=== PATIENT | female | born 1930 | race Caucasian/White ===

== ENCOUNTER 2016-09-26 07:30 | Inpatient (IN) ==
[~2016-09-26 07:30] MED LIST: ACETAMINOPHEN 500 MG TABLET PO ONE; CEFAZOLIN 1 G INJECTION IVP ONE; DEXAMETHASONE 4 MG/ML INJECTION IVP ONE; FAMOTIDINE PB 20 MG/50 ML BAG IV ONE; LIDOCAINE 1% (10mg/ml) 2mL INJ PF SDV ID ONE; MELOXICAM 15 MG TABLET PO ONE; METOCLOPRAMIDE 10mg/2ml INJECTION IVP ONE; NOZIN NASAL SWAB NAS ONE; ONDANSETRON 4 MG/2 ML INJECTION IVP ONE; TRANEXAMIC ACID 1,000 MG in NS 100 ML IV ONE
[2016-09-26] MEDS ORDERED: EPINEPHrine 0.25 MG, BUPIVACAINE 0.25% PF 30 ML, MORPHINE SULFATE 15 MG, KETOROLAC INJ ... OPSITE ONE (08:00)
[2016-09-26 08:23] VITALS: BMI 21.9
[2016-09-26] MEDS: LR 1,000 ML IV SCH ×2 (08:45→12:50)
[2016-09-26] MEDS ORDERED: VANCOMYCIN 1,000 MG INJECTION ONE (10:31)
--- NOTE | 2016-09-26 10:54 | Anesthesia Preoperative Report ---
Anesthesia Preoperative Record - Date and Time Date: 09/26/16 Preoperative Diagnosis: Rt TKA M17.11 Proposed Procedure: Right total knee arthroplasty NPO Since Date: 09/26/16 NPO Since Time: 10:52 Allergies/Adverse Reactions: Allergies Allergy/AdvReac Type Severity Reaction Status Date / Time erythromycin base Allergy Intermediate TRENCH Verified 09/26/16 09:07 MOUTH - Vital Signs Vital Signs: Temperature 98.3 F 09/26/16 08:20 Pulse Rate 62 09/26/16 08:46 Respiratory Rate 20 09/26/16 08:20 Blood Pressure 153/69 H 09/26/16 08:20 Pulse Oximetry 100 09/26/16 08:20 Oxygen Delivery Method Room Air Height and Weight: Height 4 ft 11 in Weight 49.3 kg Body Mass Index 21.9 - Medications Inpatient Medications: Current Medications Lactated Ringer's (Lactated Ringers) 1,000 mls @ 50 mls/hr IV .Q20H ANGEL LUIS Last Admin: 09/26/16 08:45 Dose: 50 mls/hr Sodium Chloride (Iv Flush) 10 - 80 ml IVF PRN PRN PRN Reason: [place] Home Medications: Home Medications Medication Instructions Recorded Confirmed Type Amlodipine Besylate 5 mg PO HS #0 02/08/11 09/26/16 History Aspirin [Aspir 81] 81 mg PO DAILY #0 02/08/11 09/26/16 History Thyroid,Pork [[place] Thyroid] 60 mg PO DAILY #0 02/08/11 09/26/16 History Calcium Citrate/Vitamin D3 1 cap PO BID #0 08/19/14 09/26/16 History [Citracal + D Maximum Caplet] Omeprazole 40 mg PO DAILY #0 08/19/14 09/26/16 History Pravastatin Sodium 20 mg PO HS #0 08/19/14 09/26/16 History Is Patient on Beta Oswald?: Yes - Medical History Respiratory: DENIES: Asthma, Bronchitis, Chronic Obstructive Pulmonary Disease (COPD), Dyspnea, Orthopnea, Pulmonary Embolism, Pneumonia, Upper Respiratory Infection, Pulmonary Edema, Sleep Apnea, Tuberculosis, Other Cardiovascular: Reports: Hypertension, High Cholesterol, Other (Carotid stenosis -> Bilat endarterectomies) Gastrointestional: Reports: Gastroesophageal Reflux Disease (well controlled with meds) Neuro/Musculoskeletal: Denies: HX.MS.OSAR, Back Problems, Cerebrovascular Accident, Depression, Headaches, Loss of Consciousness, Muscle Weakness, Neuromuscular Disorder, Paralysis, Paresthesia, Syncope, Seizures, Other Renal/Endocrine: Reports: Thyroid Disease (controlled with emds) Other History: DENIES: Anesthesia Reactions, Now, Blood Transfusions, Chemotherapy , Cancer, Hemophilia, Malignant Hyperthermia, Sickle Cell Disease, Other - Surgical History HEENT Surgeries: Reports: Eye Surgery (cataract with IOL x2; repair retinal hole ) Cardiac Surgeries/Treatments: Reports: Cardiac Catheterization GI Surgery/Treatments: Reports: Colonoscopy Surgery/Treatment: REPORT: Other (MMK) Musculoskeletal Surgery/Tx: Reports: Carpal Tunnel Release (BIALTERAL CARPAL TUNNEL RELEASE; RIGHT GANGLION CYST), Knee Arthroscopy (LEFT KNEE) Reproductive Surgery/Treatment: Reports: Other (breast biopsy x2 ON RIGHT) Anesthesia Reactions: None Hx Family Anesthesia Reaction: No History of Motion Sickness: No - Social History Smoking Status: Never smoker Substance Use Type: does not use - Pertinent Findings EKG Rhythm: Normal Sinus Rhythm - Physical Exam Respiratory Exam: Present: lungs clear, bilateral breath sounds equal Cardiovascular Exam: Present: regular rate and rhythm, no murmur - Airway Assessment Mallampati Score: II TMD: 3 Fingerbreadths Neck Extension: good Teeth: chipped teeth/crowns (left top front) Overall Assessment: no airway concerns - ASA ASA Score: 2 - Plan Anesthesia: General TIVA, Neuroaxial (SAB) Regional/Trunk Block: Spinal Peripheral Nerve Block: Saphenous-Right (Post op) - Discussion Discussion: Discussed risks/options/alternatives of anesthesia and questions answered. Patient consents. Nursing pain assessment noted. Present for Discussion: other (none) Attestation Statement: Prior to the delivery of any anesthetic medication, I examined the patient, developed the plan, obtained the patient's consent and discussed the risk and benefits of the procedure with the patient/guardian. - Additional Information Seen by Anesthesia: Yes
[2016-09-26] MEDS ORDERED: SALINE FLUSH 10ml SYRINGE IVF PRN (11:12)
[2016-09-26] MEDS ORDERED: VANCOMYCIN 1,000 MG INJECTION IAR ONE (13:00)
[2016-09-26] MEDS ORDERED: PROPOFOL 500 MG/50 ML VIAL IV ONE (13:07)
[2016-09-26] MEDS ORDERED: PROPOFOL 20 ML ONE (13:07)
[2016-09-26] MEDS ORDERED: ROPIVACAINE 0.5% (5mg/ml) 30ml INJ ONE (13:12)
--- NOTE | 2016-09-26 13:14 | Operative Note ---
- Procedure Side: right Preoperative Diagnosis: knee primary DJD Postoperative Diagnosis: Same as preoperative diagnosis. Operation: total knee arthroplasty Surgeon: Bre Topete MD Line Tender: Denilson Gallagher Complications: None. Regional/Trunk Block: Spinal Peripheral Nerve Block: Saphenous-Right Estimated Blood Loss: See Anesthesia Record. Fluids: Please see Anesthesia Record. Description of Procedure: Mrs. Astudillo and the right knee were identified and marked in the preoperative holding area. She was brought back to the operating suite and placed supine on the operating table. Spinal anesthetic was administered. The operative lower extremity was prepped and draped in a sterile fashion. Timeout was performed. She had a fixed valgus deformity with minimal flexion contracture. An anterior midline incision followed by medial parapatellar arthrotomy was performed. The tourniquet was not used until cementing. Hemostasis was obtained with electrocautery. The patella was resurfaced to a size 29. A distal femoral osteotomy was then performed in 5 of valgus using intramedullary guide. The femur was sized at a 3 and rotation set using the epicondylar axis. Distal femoral cuts were performed with a 4-in-1 cutting block. A proximal tibial cut was then made perpendicular to its long axis using an extramedullary guide. At this point remaining meniscus and osteophytes were removed and joint cocktail was injected throughout soft tissue. Trial components were placed with a 9 mm spacer. This allowed for full extension and flexion and the patella tracked well after a lateral release. The leg was then exsanguinated and the tourniquet inflated to 250 mmHg. The tibia was then stamped at a size 3 at the proper rotation. The bone was then prepared for cementing and Jessie Triathalon components were cemented into place and allowed to cure in extension. The tourniquet was then let down and hemostasis obtained with electrocautery. Betadine solution was used during the curing period for 3 minutes. 1 g of vancomycin powder was placed into the joint before the capsulotomy was repaired with #1 Vicryl. I then left my casino assistant manager close the subcutaneous tissue and skin with 2-0 Vicryl and Monocryl. Dermabond was used on the skin. The drapes were then removed and she was taken to recovery room under the care of anesthesia.
--- NOTE | 2016-09-26 13:28 | History & Physical Update ---
- History and Physical Update Date: 09/26/16 Update: I evaluated this patient and found no changes in the history and clinical exam findings. The treatment plan and recommendations are also unchanged from the previous documentation.
[2016-09-26] MEDS ORDERED: LORazepam 1 MG TABLET PO PRN (14:17)
[2016-09-26] MEDS ORDERED: DiphenhydrAMINE 25 MG CAPSULE PO PRN (14:17)
[2016-09-26] MEDS ORDERED: ONDANSETRON 4 MG/2 ML INJECTION IVP PRN (14:17)
[2016-09-26] MEDS ORDERED: DiphenhydrAMINE 50 MG/ML INJECTION IVP PRN (14:17)
[2016-09-26] MEDS ORDERED: NOZIN NASAL SWAB NAS ONE (14:17)
--- NOTE | 2016-09-26 14:36 | XRay Report ---
Indication: postoperative image PROCEDURE: XR knee RT 2V: Encounter: Initial Comparison: April 24, 2016 Findings: Postoperative changes of right total knee replacement are seen. There is expected postoperative subcutaneous gas. No evidence of hardware failure or acute fracture. No retained radiopaque surgical instruments or sponges. Overlying material causing artifact. Impression: New right total knee prosthesis without evidence of immediate complication. .
[2016-09-26] MEDS: NS 1,000 ML IV SCH ×3 (14:59→15:15)
[2016-09-26] MEDS: NOZIN NASAL SWAB NAS SCH ×2 (15:13→21:05)
[2016-09-26] MEDS: TRAMADOL 50 MG TABLET PO PRN ×2 (15:51→22:41)
--- NOTE | 2016-09-26 15:52 | Anesthesia Procedure Note ---
Peripheral Nerve Blockade - Procedure Physician: Georges Topete MD Date: 09/26/16 Surgical Procedure: Right Total Knee Replacement Discussion: Discussed risks/options/alternatives of anesthesia and questions answered. Patient consents. Nursing pain assessment noted. Block Start: 13:49 Block Stop: 13:53 Blocked Employed: Adductor Canal Indication: Post-Operative Pain Approach: Right Side Confirmed Position: Supine Patient: Consent, Risks/Benefits Discussed, Informed, Post Block Act. Discussed IV Sedation: No Initial Vital Signs: Temperature 98.3 F 09/26/16 08:20 Temperature Source Oral 09/26/16 08:20 Pulse Rate 64 09/26/16 08:20 Respiratory Rate 20 09/26/16 08:20 Blood Pressure 153/69 H 09/26/16 08:20 Blood Pressure Mean 97 09/26/16 08:20 Blood Pressure Position Sitting 09/26/16 08:20 Pulse Oximetry 100 09/26/16 08:20 Oxygen Delivery Method 09/26/16 08:20 Post Vital Signs: Temperature 97.1 F 09/26/16 14:30 Pulse Rate 73 09/26/16 15:34 Respiratory Rate 12 09/26/16 15:34 Blood Pressure 174/69 H 09/26/16 15:15 Pulse Oximetry 100 09/26/16 15:34 Oxygen Delivery Method Room Air Initial Pain Pain Score: 6 Post Block Pain Score: 5 Prep: Chlorhexadine/ETOH Ultrasound Used?: Yes - Nerve Simulator Paresthesia/Pain: None - Injectate Ropivacaine (%): 0.5 Ropivacaine (mL): 22 Was Epi 1:200,000 Used?: No Injection: Injection made incrementally with constant monitoring and aspiration every ml
--- NOTE | 2016-09-26 15:56 | Anesthesia Postoperative Note ---
- Date and Time Date: 09/26/16 Time: 15:56 - Status Patient Participated in Evaluation: Patient Participated in Person Vital Signs: Temperature 97.1 F 09/26/16 14:30 Pulse Rate 73 09/26/16 15:34 Respiratory Rate 12 09/26/16 15:34 Blood Pressure 174/69 H 09/26/16 15:15 Pulse Oximetry 100 09/26/16 15:34 Oxygen Delivery Method Room Air Respiratory Function: Airway Patent Cardiovascular Function: Regular Pulse EKG Rhythm: Normal Sinus Rhythm Mental Status: Alert and Oriented Hydration: Taking PO Fluids Complications During Recover: None Apparent - Follow-Up Instructions Instructions: Per Surgeon
[2016-09-26] MEDS: ACETAMINOPHEN 325 MG TABLET PO SCH ×2 (16:46→22:42)
[2016-09-26] MEDS: CEFAZOLIN 2 G in NS 100 ML IV SCH (20:03)
[2016-09-26] MEDS ORDERED: PRAVASTATIN 20 MG TABLET PO SCH (21:00)
[2016-09-26] MEDS ORDERED: SENNOSIDES 8.6 MG TABLET PO SCH (21:00)
[2016-09-26] MEDS ORDERED: AMLODIPINE 5 MG TABLET PO SCH (21:00)
[2016-09-26] MEDS: NAPROXEN 220 MG TABLET PO PRN (21:05)
[2016-09-26] MEDS: CALCIUM CITRATE 315mg + VIT.D 250units TABLET PO SCH (21:05)
[2016-09-26] MEDS: ASPIRIN *EC* 325 MG TABLET PO SCH (21:06)
[2016-09-26] MEDS: DOCUSATE SODIUM 100 MG CAPSULE PO SCH (21:06)
[2016-09-27] MEDS ORDERED: CYCLOBENZAPRINE 10 MG TABLET PO PRN (00:35)
[2016-09-27] MEDS: TRAMADOL 50 MG TABLET PO PRN (02:24)
[2016-09-27] MEDS: CEFAZOLIN 2 G in NS 100 ML IV SCH (03:20)
[2016-09-27 04:32] VITALS: RESP 16; TEMP 97.7
[2016-09-27] MEDS: NS 1,000 ML IV SCH (05:38)
[2016-09-27] MEDS: NOZIN NASAL SWAB NAS SCH ×2 (05:39→12:48)
[2016-09-27] MEDS: ACETAMINOPHEN 325 MG TABLET PO SCH ×3 (05:47→12:47)
[2016-09-27] MEDS ORDERED: OMEPRAZOLE 20 MG CAPSULE PO SCH (06:30)
[2016-09-27] MEDS ORDERED: POLYETHYL GLYCOL 3350 17gm PACKET PO SCH (09:00)
[2016-09-27] MEDS: DOCUSATE SODIUM 100 MG CAPSULE PO SCH (09:07)
[2016-09-27] MEDS: NAPROXEN 220 MG TABLET PO PRN (09:08)
[2016-09-27] MEDS: ASPIRIN *EC* 325 MG TABLET PO SCH (09:08)
[2016-09-27] MEDS: CALCIUM CITRATE 315mg + VIT.D 250units TABLET PO SCH (09:08)
[2016-09-27 11:54] VITALS: BP 163/63; PULSE 63; O2SAT 93
--- NOTE | 2016-09-27 12:10 | Orthopedic Progress Note ---
Date: Pain behind the knee. No other specific concerns. Orthopedic Objective Vital signs: Temperature 97.7 F 09/27/16 04:14 Pulse Rate 63 09/27/16 11:53 Respiratory Rate 16 09/27/16 11:53 Blood Pressure 163/63 H 09/27/16 11:53 Pulse Oximetry 93 09/27/16 11:53 Oxygen Delivery Method Room Air Height and Weight: Height 4 ft 11 in Weight 51.9 kg Body Mass Index 21.9 - Constitutional General Appearance: Present: no acute distress - Respiratory Exam Present: non-labored - Cardiovascular Exam Present: pedal pulses intact Capillary Refill: < 2-3 Seconds - Extremities Exam Absent: calf tenderness - Neurological Exam Present: no deficits. Absent: intact to light touch - Psychiatric Exam Present: alert - Wound Management Right Knee Drainage Amount: None Secondary Dressing: Mepilex - Labs Result Diagrams: 09/27/16 04:11 09/27/16 04:11 Abnormal lab results 09/27/16 09/27/16 Range/Units 04:11 04:11 WBC 12.1 H (4.5-11.0) T/MM3 RBC 3.32 L (4.00-5.20) M/MM3 Hgb 10.1 L (12-16) GM/DL Hct 29.7 L (36-46) % MPV 12.5 H (9.4-12.4) UM3 Creatinine 0.6 L (0.7-1.2) MG/DL H & H 09/27/16 Range/Units 04:11 Hgb 10.1 L (12-16) GM/DL Hct 29.7 L (36-46) % Orthopedic Assessment and Plan (1) Arthritis of knee, right Status: Resolved Assessment and Plan: Doing well. Continue current treatment. Anticipate discharge later today. Hospital Course Summary Disclaimer: The visit summary below is not to be considered part of the above Progress Note.
--- NOTE | 2016-09-27 13:31 | Discharge Summary ---
Orthopedic Discharge Info Date of admission: 09/26/16 08:05 Primary care physician: Lolita Crook MD Attending Physician: Georges Topete MD Consults: 09/26/16 08:37 Consult to Anesthesiology [CONS] Routine Consulting Provider: BRIA Prince Reason For Exam: Preoperative Assessment 09/26/16 14:17 Case Management Consult [CONS] Routine Reason For Exam: Discharge Planning DME-Walker [CONS] Routine Height: 4 ft 11 in Weight: 108 lb 11.006 oz Comment: change dressing in 2 weeks Total Joint Outpatient Therapy [CONS] Routine Comment: change dressing in 2 weeks - Discharge Diagnosis (1) Arthritis of knee, right Status: Resolved - Procedures Procedures: Right TKA - Laboratory Result Diagrams: 09/27/16 04:11 09/27/16 04:11 Laboratory: Abnormal lab results 09/27/16 09/27/16 Range/Units 04:11 04:11 WBC 12.1 H (4.5-11.0) T/MM3 RBC 3.32 L (4.00-5.20) M/MM3 Hgb 10.1 L (12-16) GM/DL Hct 29.7 L (36-46) % MPV 12.5 H (9.4-12.4) UM3 Creatinine 0.6 L (0.7-1.2) MG/DL H & H 09/27/16 Range/Units 04:11 Hgb 10.1 L (12-16) GM/DL Hct 29.7 L (36-46) % Orthopedic Discharge HPI - HPI Comments This patient was admitted for elective surgical tx of end stage degenerative joint disease that failed to respond to conservative treatment. Further details of this is found in the admission H&P. Orthopedic Hospital Course Hospital course: 09/27/16 13:28 After appropriate preoperative clearance and signing of operative consent, the patient was given IV antibiotics, according to orthopedic protocol. The patient was taken to the operating room and underwent elective joint arthroplasty. Following surgery, antibiotics were discontinued less than 24 hours according to joint protocol. Appropriate anticoagulants were initiated and SCDs added for DVT prevention. The dressing was clean, dry, and intact. Pain control was obtained via multimodal approach. Bowel motivation addressed with scheduled and PRN medications. Early mobilization was initiated through PT services. Discharge arrangements made by a collaborative effort between the patient and Case Management. Follow-up is scheduled in 2-3 weeks. Discharge instructions given by orthopedic providers and nursing staff at discharge. Discharge condition was good. Ongoing care required?: No - Postoperative Anemia patient received IVF, labs monitored daily, no intervention required, HGB drop- acceptable - Leukocytosis due to preoperative IV Decadron Discharge Plan - Med Rec/Dispo Referrals/Follow Up: Georges Topete MD [Physician] - 10/18/16 1:30 pm Elijahuven Instructions: [facility] [place] Additional Instructions: [facility] ON 09/29/2016 AT 11:00AM FOR PHYSICAL THERAPY EVAL. PLEASE COMPLETE THE PAPERWORK IN THE [facility] PRIOR TO THE APPOINTMENT. PHONE [phone] Prescriptions: New Aspirin *EC* [Ecotrin] 325 mg PO BID #84 tablet Tramadol [Ultram] 50 - 100 mg PO Q6H PRN #60 tablet PRN Reason: Pain Acetaminophen [Tylenol] 650 mg PO QID #100 tablet Naproxen [Aleve] 440 mg PO BID PRN #84 tablet PRN Reason: Pain Continue Omeprazole 40 mg PO DAILY #0 Thyroid,Pork [[place] Thyroid] 60 mg PO DAILY #0 Amlodipine Besylate 5 mg PO HS #0 Aspirin [Aspir 81] 81 mg PO DAILY #0 Calcium Citrate/Vitamin D3 [Citracal + D Maximum Caplet] 1 cap PO BID #0 Pravastatin Sodium 20 mg PO HS #0 - Disposition 01 Discharged Home, Self-Care
[2016-09-27] MEDS ORDERED: SENNOSIDES 8.6 MG TABLET PO PRN (13:36)
[2016-09-28] MEDS ORDERED: BISACODYL 10 MG SUPPOSITORY RECTALLY SCH (20:00)
== END 2016-09-27 14:45 | disposition home or self-care (01) | DRG 470 ==
LOC: SRG 08:05
PROVIDERS: ADMIT Orthopaedic Surgery; ATTEND Orthopaedic Surgery